=== PATIENT | male | born 1995 ===

== ENCOUNTER 2025-05-23 13:01 | Emergency (ER) | payer SELFPAY ==
[~2025-05-23] VITALS: Ht 182.9 cm; Wt 83.9 kg
== END 2025-05-23 13:20 | disposition left against medical advice (07) ==
LOC: ER 13:01
DX: R03.0 Elevated blood-pressure reading, without diagnosis of hypertension (principal); R00.0 Tachycardia, unspecified; R46.89 Other symptoms and signs involving appearance and behavior; Z53.29 Procedure and treatment not carried out because of patient's decision for other reasons; Z72.821 Inadequate sleep hygiene; Z56.0 Unemployment, unspecified; Z59.89 Other problems related to housing and economic circumstances
CPT/HCPCS: 99282